=== PATIENT | male | born 1980 ===

== ENCOUNTER 2018-05-07 17:18 | Emergency (ER) | payer BC, MEDICAID ==
[2018-05-07 17:19] VITALS: BMI 25.7
[2018-05-07 17:35] VITALS: BP 140/92; PULSE 117; RESP 18; TEMP 98.6; O2SAT 96
[2018-05-07] MEDS ORDERED: Lidocaine 1%/Epinephrine 1:100000 30 ml vial INJ ONE (17:43)
[2018-05-07] MEDS ORDERED: Lidocaine Hydrochloride 5 ML INJ ONE (18:04)
[2018-05-07] MEDS ORDERED: Bacitracin 500 Units/gm Oint Foilpak UD TOP ONE (18:21)
--- NOTE | 2018-05-07 18:24 | C.PDOC ---
History Of Present Illness 37 year old male presents to the ER for evaluation of a laceration to the right forearm. He states a large piece of metal fell onto approx it 1 hour ago. He originally went to [facility] ED but states "the wait was too long", so he came here. Tetanus vaccination is up to date, received it last year. Patient denies any other injuries, sensory changes, weakness. Denies any other injury. Time Seen by Provider: 05/07/18 17:36 Chief Complaint (Nursing): Abnormal Skin Integrity History Per: Patient History/Exam Limitations: no limitations Onset/Duration Of Symptoms: Hrs Current Symptoms Are (Timing): Still Present Severity: Mild Past Medical History Reviewed: Historical Data, Nursing Documentation, Vital Signs Vital Signs: Last Vital Signs Temp 98.6 F 05/07/18 17:32 Pulse 117 H 05/07/18 17:32 Resp 18 05/07/18 17:32 BP 140/92 H 05/07/18 17:32 Pulse Ox 96 05/09/18 13:19 - Medical History PMH: Asthma, Back Problems (chronic neck pain) Family History: States: No Known Family Hx - Social History Hx Alcohol Use: Yes Hx Substance Use: Yes (heroine, marijuana, crack) - Immunization History Hx Tetanus Toxoid Vaccination: No Review Of Systems Constitutional: Negative for: Fever, Chills Musculoskeletal: Positive for: Arm Pain Skin: Positive for: Lesions (laceration to arm). Negative for: Rash, Bruising Neurological: Negative for: Weakness, Numbness Physical Exam - Physical Exam Appears: Well, Non-toxic, No Acute Distress Skin: Normal Color, Warm, Dry, No Rash Head: Atraumatic, Normacephalic Eye(s): bilateral: Normal Inspection Oral Mucosa: Moist Neck: Supple Cardiovascular: Rhythm Regular Respiratory: Normal Breath Sounds, No Rales, No Rhonchi, No Wheezing Extremity: Normal ROM (with intact ROM to all digits and right wrist), Capillary Refill (< 2 sec all digits ), No Deformity, No Swelling, Other (Right forearm with approx 5 cm laceration to the lateral aspect of mid forearm, with mild bleeding; No foreign bodies or debris) Pulses: Left Radial: Normal, Right Radial: Normal Neurological/Psych: Oriented x3, Normal Sensation Gait: Steady ED Course And Treatment O2 Sat by Pulse Oximetry: 96 (RA) Pulse Ox Interpretation: Normal - Other Rad X-Ray Right Forearm X-Ray: Viewed By Me, Read By Radiologist Interpretation: Accession No. : [id number]. Patient Name / ID : PRAVEEN RODRIGUEZ / [id number]. Exam Date : 05/07/2018 17:46:10 ( Approved ). Study Comment : Sex / Age : M / 37Y. Creator : Aguila Johnson MD. Dictator : Aguila Johnson MD. Cattery Operator : Coding Technician : Aguila Johnson MD. Approver2 : Report Date : 05/07/2018 18:21:05. My Comment : . PROCEDURE: Radiographs of the Right Forearm. HISTORY: right forearm laceration/trauma. COMPARISON: None available. TECHNIQUE: Frontal and lateral views obtained. FINDINGS: BONES: No fracture or destructive lesion. JOINT SPACES: Unremarkable. OTHER FINDINGS: Mid forearm soft tissue defect. IMPRESSION: Mid forearm soft tissue laceration. No evidence of osseous injury. Progress Note: Xrays of right forearm ordered and reviewed. Patient given PO tylenol. Laceration repair done by me, patient tolerated well. Bacitracin + gauze dressing applied to area by nurse. Patient given Rxs for Clindamycin and Naprosyn, and was instructed to return for suture removal in 7-10 days. He understands he should return sooner if he has any concerning symptoms, such as fever, redness, swelling, discharge etc. Reassessment Condition: Improved Laceration - Laceration Repair 5 Wound Length (In cm): 5 Description Of Wound: Linear Anesthesia: Lidocaine 1%, With Bicarb Wound Examination: Irrigated With Saline, No FB With Wound Exploration, No Tendon Injury With Wound Exploration Wound Closure: Suture (3 subcutaneous Vicryl 3.0. 9 dermal nylon 3.0) Suture Technique And Material Used: Interrupted, Nylon, Vicryl Wound Complexity: Intermediate Disposition Counseled Patient/Family Regarding: Studies Performed, Diagnosis, Need For Followup, Rx Given - Disposition Referrals: [facility] [Outside] Disposition: HOME/ ROUTINE Disposition Time: 18:40 Condition: STABLE Additional Instructions: SUTURE REMOVAL IN 7 DAYS USE MEDICATIONS DIRECTED RETURN TO ER IF SYMPTOMS WORSEN Prescriptions: Clindamycin [Cleocin] 300 mg PO TID #21 cap Naproxen 375 mg PO BID PRN #20 tablet PRN Reason: pain Instructions: Laceration Repair With Stitches (DC) Forms: [employer] (Amharic) Print Language: BENGALI - POA Present On Arrival: Falls Or Trauma - Clinical Impression Clinical Impression: Arm laceration - Scribe Statement The provider has reviewed the documentation as recorded by the Scribe (Annabelle Tolentino) Provider Attestation: All medical record entries made by the Scribe were at my direction and personally dictated by me. I have reviewed the chart and agree that the record accurately reflects my personal performance of the history, physical exam, medical decision making, and the department course for this patient. I have also personally directed, reviewed, and agree with the discharge instructions and disposition.
[2018-05-07] MEDS ORDERED: Bacitracin 500 Units/gm Oint Foilpak UD ONE (18:25)
== END 2018-05-07 18:43 | disposition home or self-care (01) ==
LOC: C.ER 17:18
DX: S51.811A Laceration without foreign body of right forearm, initial encounter (principal); W22.8XXA Striking against or struck by other objects, initial encounter

== ENCOUNTER 2018-05-13 22:41 | Emergency (ER) | payer BC, MEDICAID ==
[2018-05-13 22:41] VITALS: BMI 23.7
[2018-05-13 22:48] VITALS: BP 120/88; PULSE 96; TEMP 98.8; O2SAT 98
[2018-05-13] MEDS ORDERED: Bacitracin 500 Units/gm Oint Foilpak UD TOP ONE (23:01)
--- NOTE | 2018-05-13 23:03 | C.PDOC ---
History Of Present Illness Patient is here for removal of stitches from right arm after laceration repair one week ago. Denies any fever, redness, drainage, or pain. Time Seen by Provider: 05/13/18 22:49 Chief Complaint (Nursing): Suture/Staple Removal History Per: Patient History/Exam Limitations: no limitations Onset/Duration Of Symptoms: Days Ago Past Medical History Reviewed: Historical Data, Nursing Documentation, Vital Signs Vital Signs: Last Vital Signs Temp 98.8 F 05/13/18 22:46 Pulse 96 H 05/13/18 22:46 Resp 18 05/13/18 22:46 BP 120/88 05/13/18 22:46 Pulse Ox 98 05/13/18 23:03 - Medical History PMH: Asthma, Back Problems (chronic neck pain) Family History: States: Unknown Family Hx - Social History Hx Alcohol Use: Yes Hx Substance Use: Yes (heroine, marijuana, crack METH,) - Immunization History Hx Tetanus Toxoid Vaccination: No Review Of Systems Except As Marked, All Systems Reviewed And Found Negative. Skin: Positive for: Other (sutured wound right arm) Physical Exam - Physical Exam Appears: Non-toxic, No Acute Distress Skin: Warm, Dry, Other (sutures clean dry and intact to right dorsal arm, no erythema swelling or drainage) Head: Normacephalic Eye(s): bilateral: Normal Inspection Chest: Symmetrical Extremity: Bilateral: Normal ROM Neurological/Psych: Oriented x3, Normal Speech ED Course And Treatment O2 Sat by Pulse Oximetry: 98 Medical Decision Making Medical Decision Making: Sutures removed without difficulty. RN applied bacitracin and dressing. Disposition Counseled Patient/Family Regarding: Need For Followup - Disposition Referrals: Non [facility] Provider, [Primary Care Provider] - Disposition: HOME/ ROUTINE Disposition Time: 23:03 Condition: GOOD Instructions: Stitches Removal Forms: Work Excuse - POA Present On Arrival: None - Clinical Impression Clinical Impression: Removal of suture
[2018-05-13] MEDS ORDERED: Bacitracin 500 Units/gm Oint Foilpak UD ONE (23:05)
[2018-05-13 23:34] VITALS: RESP 20
== END 2018-05-13 23:33 | disposition home or self-care (01) ==
LOC: SUPCPDRO 22:41 → C.ER 22:41
DX: Z48.02 Encounter for removal of sutures (principal)

== ENCOUNTER 2018-07-19 22:32 | Inpatient (IN) | payer BC, MEDICAID ==
[2018-07-19 22:32] VITALS: BMI 23.7
[2018-07-19 23:41] LABS: BASO # 0.1 K/uL (0.0-0.2); BASO % 1.1 % (0.0-2.0); EOS # 0.2 K/uL (0.0-0.7); HEMOGLOBIN 15.8 g/dL (12.0-18.0); LYMPH # 3.2 K/uL (1.0-4.3); LYMPH % 32.2 % (20.0-40.0); MEAN CELL VOLUME 92.4 fL (80.0-94.0); MEAN CORPUSCULAR HEMOGLOBIN 31.9 pg (27.0-31.0); MEAN CORPUSCULAR HGB CONC 34.6 g/dL (33.0-37.0); MEAN PLATELET VOLUME 8.1 fL (7.2-11.7); MONO # 0.6 K/uL (0.0-0.8); MONO % 6.2 % (0.0-10.0); NEUT # 5.9 K/uL (1.8-7.0); NEUT % 58.5 % (50.0-75.0); RBC 4.94 Mil/uL (4.40-5.90); RED CELL DISTRIBUTION WIDTH 12.5 % (11.5-14.5); WHITE BLOOD COUNT 10.1 K/uL (4.8-10.8)
[2018-07-19 23:44] LABS: URINE BILIRUBIN NEGATIVE (NEGATIVE); URINE BLOOD NEGATIVE (NEGATIVE); URINE CLARITY Clear (Clear); URINE COLOR Yellow (YELLOW); URINE GLUCOSE (UA) NORMAL (Normal); URINE LEUKOCYTE ESTERASE NEG Leu/uL (Negative); URINE PROTEIN NEGATIVE (NEGATIVE); URINE UROBILINOGEN NORMAL mg/dL (0.2-1.0)
[2018-07-19 23:54] LABS: ALB/GLOB RATIO 1.4 (1.0-2.1); ALBUMIN 4.2 g/dL (3.5-5.0); ALT/SGPT 50 U/L (21-72); AST/SGOT 27 U/L (17-59); BLOOD UREA NITROGEN 19 mg/dL (9-20); CALCIUM 8.8 mg/dl (8.6-10.4); GFR NON-AFRICAN AMERICAN > 60
[2018-07-19 23:57] LABS: BARBITURATES, UR NEGATIVE (NEGATIVE); BENZODIAZEPINES, UR NEGATIVE (NEGATIVE); PHENCYCLIDINE, UR NEGATIVE (NEGATIVE)
--- NOTE | 2018-07-19 23:57 | C.PDOC ---
History Of Present Illness 57 y/o male presents to the ED requesting detox. The patient admits to using cocaine heroine. He reports last use was a few hours ago. The patient has no medical complaints at this time. Time Seen by Provider: 07/19/18 23:27 Chief Complaint (Nursing): Substance Abuse History Per: Patient History/Exam Limitations: no limitations Onset/Duration Of Symptoms: Hrs Modifying Factor(s): Cocaine, Other (Heroine) Recent travel outside of the [place]: No Past Medical History Reviewed: Historical Data, Nursing Documentation, Vital Signs Vital Signs: Last Vital Signs Temp 98.4 F 07/19/18 22:39 Pulse 80 07/19/18 22:39 Resp 14 07/19/18 22:39 BP 140/80 07/19/18 22:39 Pulse Ox 97 07/19/18 22:39 - Medical History PMH: Asthma, Back Problems (chronic neck pain) Denies: Diabetes, Hepatitis, HIV, HTN, Seizures, Sexually Transmitted Disease Other Surgeries: Right thumb surgery Family History: States: Unknown Family Hx - Social History Hx Alcohol Use: Yes Hx Substance Use: Yes (heroine, marijuana, crack METH,) - Immunization History Hx Tetanus Toxoid Vaccination: No Review Of Systems Except As Marked, All Systems Reviewed And Found Negative. Constitutional: Negative for: Fever, Chills, Sweats Psych: Negative for: Depression, Suicidal ideation Physical Exam - Physical Exam Appears: Well, Non-toxic, No Acute Distress Skin: Normal Color, Warm, Dry Head: Atraumatic, Normacephalic Eye(s): bilateral: PERRL, EOMI Ear(s): Bilateral: Normal Oral Mucosa: Moist Neck: Supple Chest: Symmetrical Cardiovascular: Rhythm Regular, No Murmur Respiratory: Normal Breath Sounds, No Rales, No Rhonchi, No Wheezing Gastrointestinal/Abdominal: Soft, No Tenderness, No Distention Extremity: Normal ROM Extremity: Bilateral: Normal Color And Temperature, Normal ROM Neurological/Psych: Other (conscious. no focal deficits) ED Course And Treatment - Laboratory Results Result Diagrams: 07/19/18 23:38 07/19/18 23:38 O2 Sat by Pulse Oximetry: 97 (RA) Pulse Ox Interpretation: Normal Medical Decision Making Medical Decision Making: Impression: 57 y/o male requesting detox from heroine and cocaine Plan: -Alcohol serum -CMP -Drug Screen -CBC -UA Disposition Discussed With Dr.: Jatin Manuel Doctor Will See Patient In The: Hospital Counseled Patient/Family Regarding: Diagnosis - Disposition Disposition: HOSPITALIZED Disposition Time: 00:14 Condition: STABLE Forms: [facility] (Hebrew) - POA Present On Arrival: None - Clinical Impression Clinical Impression: Opiate abuse, continuous, Cocaine abuse - PA / SHOTBLASTER / Resident Statement MD/DO has reviewed & agrees with the documentation as recorded. - Scribe Statement The provider has reviewed the documentation as recorded by the Scribe (Elvi Zelaya) Provider Attestation: All medical record entries made by the Scribe were at my direction and personally dictated by me. I have reviewed the chart and agree that the record accurately reflects my personal performance of the history, physical exam, medic al decision making, and the department course for this patient. I have also personally directed, reviewed, and agree with the discharge instructions and disposition.
[2018-07-20] LABS: OPIATES, UR POSITIVE (NEGATIVE)
--- NOTE | 2018-07-20 01:53 | PCM.BM ---
Treatment Plan Problems - Problems identified on initial assessmt ETOH Dependence Date Initiated: 07/20/18 Time Initiated: 01:52 Assessment reference: NA Status: Active Opiate Dependence Date Initiated: 07/20/18 Time Initiated: 01:53 Assessment reference: NA Status: Active Treatment assets and liabiliti Patient Assests: ADL independent Patient Liabilities: substance abuse - Milieu Protocol Maintain good personal hygiene: daily Encourage regular showers, daily Remind patient to perform daily oral care, daily Assist patient to perform ADL's Maintain personal safety: every shift Educate patient to report safety concerns to staff, every shift Monitor environment for contraband/sharps Medication safety: Monitor for expected outcome, potential side effects: every s hift, Assess barriers to learning: every shift, Assess readiness for medication education: every shift
[2018-07-20] MEDS ORDERED: Aluminum Hydroxide/Magnesium Hydroxide Susp (30 mL) PO PRN (10:25)
--- NOTE | 2018-07-20 14:22 | PCM.PSYCH ---
Initial Psychiatric Evaluation - Initial Psychiatric Evaluation Type of Admission: Voluntary Legal Status: Capacity Chief Complaint (in patient's own words): "I am withdrawing" History of Present Illness and Precipitating Events: The patient is seen, chart reviewed and case discussed. This is a 38-year-old male, single with 2 children aged 10 and 15, unemployed and lives with his father. The patient is using opiates since age 12 and lately he decreased it to 5 backs intranasally. He also uses cocaine intranasally same age and alcohol 1 pint a day. He Sean 1 time He has never been to detox or rehabilitation but he was on methadone maintenance in 2018 up to 30 mg but they discharged him from [facility] in [place]. He feels anxious and has wdw sxs Past psych history: He denies Family psych history: He denies Medical history: Asthma Current Medications: Active Medications Generic Name Dose Route Start Last Admin Trade Name Freq PRN Reason Stop Dose Admin Al Hydrox/Mg Hydrox/Simethicone 30 ml 07/20/18 10:25 Maalox 30 Ml PO TID PRN Indigestion / Heartburn Clonidine HCl 0.1 mg 07/20/18 02:39 Catapres PO Q6 PRN withdrawal symptoms Clonidine HCl 0.1 mg 07/20/18 10:25 Catapres PO Q8 PRN COWS Score More or Equal to 5 Hydroxyzine HCl 50 mg 07/20/18 10:28 07/20/18 13:36 Atarax PO 50 mg Q6 PRN Administration Anxiety Loperamide HCl 2 mg 07/20/18 10:25 Imodium PO Q8 PRN Diarrhea Methadone HCl 20 mg 07/20/18 11:00 07/20/18 10:45 Methadone PO 07/24/18 10:59 20 mg Q24H CHRISTIANO Administration Taper Ondansetron HCl 4 mg 07/20/18 10:25 Zofran Tab PO Q8 PRN Nausea/Vomiting Past Psychiatric History - Past Psychiatric History Previous Treatment History: None Pertinent Medical Hx (Current Medical&Sleep Prob, Allergies): Allergies Allergy/AdvReac Type Severity Reaction Status Date / Time No Known Allergies Allergy Verified 07/19/18 22:41 No Known Home Med 05/13/18 Review of Systems - Neurological Neurological: Tremor - Psychiatric Psychiatric: Abnormal Sleep Pattern, Anhedonia, Behavioral Changes, Change in Appetite, Difficulty Concentrating. absent: Hallucinations, Homicidal Ideation, Paranoia, Suicidal Ideation Mental Status Examination - Personal Presentation Personal Presentation: Looks stated age - Affect Affect: Constricted - Motor Activity Motor Activity: Other (restless) - Reliability in Providing Information Reliability in Providing Information: Fair - Speech Speech: Organized - Mood Mood: Depressed, Anxious - Formal Thought Process Formal Thought Process: No Impairment - Cognitive Functions Orientation: Person, Place, Situation, Time Sensorium: Alert Attention/Concentration: Easily distracted Estimate of Intelligence: Average Judgement: Intact, as evidence by: Insight regarding need for hospitalization Memory: Recent intact, as evidence by: Ability to recall events of the day, Remote intact, as evidenced by: Abilit to recall sig. life events - Risk Risk: Seizure, Withdrawal, Diminished functioning - Strength & Assets Inventory Strength & Assets Inventory: Cooperative - Limitations Limitations: Living alone DSM 5 DX - DSM 5 DSM 5 Diagnosis: Opioid withdrawal Opioid use d/o - severe - Recommended/Plan of Treatment Treatment Recommendations and Plan of Treatment: Taper with methadone Gabapentin for augmentation if needed As needed medications All risks, benefits and alternatives of the meds discussed, and the pt agreed and understood. Attend groups and activities Supportive therapy and psychoeducation HI for abstinence CBT for relapse prevention Encourage MAT Refer to rehab or IOP, and self-help groups Teach healthy lifestyle methods, i.e. diet, exercise, meditation Smoking cessation with HI Nicotine patch if needed 34 min Projected ELOS: 4-5 days Prognosis: good w treatment - Smoking Cessation Smoking Cessation Initiated: Yes
[2018-07-22 10:54] VITALS: BP 127/75; PULSE 68; RESP 20; TEMP 97.7; O2SAT 98
--- NOTE | 2018-07-22 19:21 | PCM.PYCHDC ---
Mental Status Examination - Mental Status Examination Orientation: Person, Place, Situation, Time Memory: Intact Mood: Neutral Affect: Other (Appropriate) Speech: Appropriate Attention: WNL Concentration: WNL Association: WNL Fund of Knowledge: WNL Formal Thought Process: No Impairment Description of patient's judgement and insight: Poor Psychotic Thoughts and Behaviors: None Suicidal Ideation: No Current Homicidal Ideation?: Yes Discharge Summary - Discharge Note Reason for Hospitalization: Opiate use disorder severe Cocaine use disorder Alcohol use disorder Laboratory Data: Reviewed Consultations:: List each consultation separately and include: 1. Reason for re quest. 2. Findings. 3. Follow-up Summary of Hospital Course include:: 1. Description of specific treatment plan utilized for patients during their course of treatmen. 2. Summarize the time- course for resolution of acute symptoms and/or regressed behaviors. 3. Describe issues identified and worked on during hospitalization. 4. Describe medication utilized. 5. Describe medical problems identified and treated. 6. Reassessment of suicide risk Summary of Hospital Course: The patient is seen, chart reviewed and case discussed. This is a 38-year-old male, single with 2 children aged 10 and 15, unemployed and lives with his father. The patient is using opiates since age 12 and lately he decreased it to 5 backs intranasally. He also uses cocaine intranasally same age and alcohol 1 pint a day. He Sean 1 time He has never been to detox or rehabilitation but he was on methadone maintenance in 2018 up to 30 mg but they discharged him from [facility] in [place]. He feels anxious and has wdw sxs Past psych history: He denies Family psych history: He denies Medical history: Asthma During his stay in the hospital, patient was treated with methadone taper for opiate withdrawal symptoms. He was also started on other when necessary medications. Patient started feeling little better with the treatment. Today yvan martin decided to leave the unit without completion of the detox. Education provided about detox and also to complete the treatment. Patient refused. Patient was also educated that in case of any adverse event including relapse, decompensation, overdose or even of the patient, patient will be responsible for his acts. Patient understood and agreed with the above but still refuses to stay and left the unit AGAINST MEDICAL ADVICE. At the time of evaluation and discharge, was awake alert oriented 3, had no delusions, no auditory or visual hallucinations, no suicidal ideations or homicidal ideations. Patient was discharged in a stable condition. - Final Diagnosis (DSM 5) Condition upon Discharge: STABLE Disposition: AGAINST MEDICAL ADVICE - Smoking Cessation Smoking Cessation Medication prescribed: No - Antipsychotic Medications Pt discharged on 2 or more routine antipsychotic medications: No
== END 2018-07-22 12:45 | disposition left against medical advice (07) | DRG 894 ==
LOC: C.ER 22:32 → C.7D 07-20 00:18
PROC: HZ2ZZZZ Detoxification Services for Substance Abuse Treatment (ICD-10-PCS; principal; 2018-07-20)
PROC: HZ81ZZZ Medication Management for Substance Abuse Treatment, Methadone Maintenance (ICD-10-PCS; 2018-07-20)
PROC: HZ80ZZZ Medication Management for Substance Abuse Treatment, Nicotine Replacement (ICD-10-PCS; 2018-07-20)
PROC: HZ46ZZZ Group Counseling for Substance Abuse Treatment, Psychoeducation (ICD-10-PCS; 2018-07-20)
PROC: HZ59ZZZ Individual Psychotherapy for Substance Abuse Treatment, Supportive (ICD-10-PCS; 2018-07-20)
DX: F11.23 Opioid dependence with withdrawal (principal); F10.10 Alcohol abuse, uncomplicated; F14.10 Cocaine abuse, uncomplicated; F17.210 Nicotine dependence, cigarettes, uncomplicated; J45.909 Unspecified asthma, uncomplicated

== ENCOUNTER 2018-10-04 14:51 | Emergency (ER) | payer BC, MEDICAID ==
[2018-10-04 14:51] VITALS: BMI 23.7
--- NOTE | 2018-10-04 15:35 | C.PDOC ---
History Of Present Illness 38 y/o male brought in by ambulance, accompanied by [employer], for public intoxication. Patient states in triage Im drunk. Reports he just wants to leave. Patient is uncooperative with provided further history. No evidence of trauma or injury. Time Seen by Provider: 10/04/18 14:54 Chief Complaint (Nursing): Psychiatric Evaluation History Per: Patient History/Exam Limitations: no limitations Onset/Duration Of Symptoms: Hrs Current Symptoms Are (Timing): Still Present Modifying Factor(s): Alcohol Additional History Per: EMS, Law Enforcement Past Medical History Reviewed: Historical Data, Nursing Documentation, Vital Signs Vital Signs: Last Vital Signs Temp 97.4 F L 10/04/18 14:55 Pulse 107 H 10/04/18 14:55 Resp BP 140/78 10/04/18 14:55 Pulse Ox 95 10/04/18 14:55 - Medical History PMH: Asthma, Back Problems (chronic neck pain) Denies: Diabetes, Hepatitis, HIV, HTN, Chronic Kidney Disease, Seizures, Sexually Transmitted Disease - [facility] Procedures DETOXIFICATION SERVICES FOR SUBSTANCE ABUSE TREATMENT (07/20/18) GROUP SNAP SHEARER FOR SUBSTANCE ABUSE TREATMENT, PSYCHOEDUCATION (07/20/18) INDIV PSYCHOTHERAPY FOR SUBSTANCE ABUSE TREATMENT, SUPPORT (07/20/18) MEDS MGMT FOR SUBSTANCE ABUSE TREATMENT, METHADONE MAINT (07/20/18) MEDS MGMT FOR SUBSTANCE ABUSE TREATMENT, NICOTINE REPLACE (07/20/18) Family History: States: Unknown Family Hx - Social History Hx Alcohol Use: Yes Hx Substance Use: Yes - Immunization History Hx Tetanus Toxoid Vaccination: No Hx Influenza Vaccination: No Hx Pneumococcal Vaccination: No Review Of Systems Except As Marked, All Systems Reviewed And Found Negative. Constitutional: Negative for: Fever Cardiovascular: Negative for: Chest Pain Respiratory: Negative for: Shortness of Breath Gastrointestinal: Negative for: Vomiting Neurological: Negative for: Weakness, Numbness Psych: Positive for: Other (ETOH intoxication). Negative for: Suicidal ideation (or plan) Physical Exam - Physical Exam Additional Physical Exam Comments: Constitutional: No acute distress. Patient uncooperative with exam. Head: Normocephalic. Atraumatic. Eyes: PERRL. Skin: No rash. Neurologic: Alert, appears intoxicated. ED Course And Treatment O2 Sat by Pulse Oximetry: 95 (RA) Pulse Ox Interpretation: Normal Medical Decision Making Medical Decision Making: Patient uncooperative with history and exam, stating he just wants to leave. Restraints placed. Patient later awake, alert, steady gait, reasonable interactions with staff. Discharged. Disposition - Disposition Disposition: HOME/ ROUTINE Disposition Time: 16:54 Condition: STABLE Instructions: Alcohol Abuse and Alcoholism (DC) Forms: [employer] (Belarusian) - Clinical Impression Clinical Impression: Alcohol intoxication - Scribe Statement The provider has reviewed the documentation as recorded by the Hiltonibmattie Tolentino Provider Attestation: All medical record entries made by the Marla were at my direction and personally dictated by me. I have reviewed the chart and agree that the record accurately reflects my personal performance of the history, physical exam, medical decision making, and the department course for this patient. I have also personally directed, reviewed, and agree with the discharge instructions and disposition.
[2018-10-04 16:34] VITALS: RESP 16
[2018-10-04 18:22] VITALS: BP 105/61; PULSE 79; TEMP 98.3
[2018-10-04 22:57] VITALS: O2SAT 95
== END 2018-10-04 18:21 | disposition home or self-care (01) ==
LOC: C.ER 14:51
DX: F10.129 Alcohol abuse with intoxication, unspecified (principal); Y90.8 Blood alcohol level of 240 mg/100 ml or more
CPT/HCPCS: 96372; 99283; G0480; J1630; J2060

== ENCOUNTER 2018-11-29 11:37 | Emergency (ER) | payer BC, MEDICAID ==
[2018-11-29 11:37] VITALS: BMI 23.7
[2018-11-29 11:50] VITALS: BP 136/83; PULSE 95; RESP 20; TEMP 98.6; O2SAT 95
--- NOTE | 2018-11-29 13:25 | C.PDOC ---
History Of Present Illness 38 year old male brought in by EMS for heroin overdose. Patient uses heroin intranasally. Patient had a prior evaluation that was the same. Patient was given narcan in the field. Patient regained baseline mental status. Patient denies nausea, vomiting, or dizziness. Time Seen by Provider: 11/29/18 12:57 Chief Complaint (Nursing): Substance Abuse History Per: Patient, EMS History/Exam Limitations: no limitations Onset/Duration Of Symptoms: Hrs Current Symptoms Are (Timing): Still Present Modifying Factor(s): Other (heroin) Additional History Per: Patient, EMS Past Medical History Reviewed: Historical Data, Nursing Documentation, Vital Signs Vital Signs: Last Vital Signs Temp 98.6 F 11/29/18 11:47 Pulse 95 H 11/29/18 11:47 Resp 20 11/29/18 11:47 BP 136/83 11/29/18 11:47 Pulse Ox 95 11/29/18 11:47 - Medical History PMH: Asthma, Back Problems (chronic neck pain) Denies: Diabetes, Hepatitis, HIV, HTN, Chronic Kidney Disease, Seizures, Sexu ally Transmitted Disease Surgical History: No Surg Hx - [facility] Procedures DETOXIFICATION SERVICES FOR SUBSTANCE ABUSE TREATMENT (07/20/18) GROUP QUALITY ASSURANCE CALIBRATOR FOR SUBSTANCE ABUSE TREATMENT, PSYCHOEDUCATION (07/20/18) INDIV PSYCHOTHERAPY FOR SUBSTANCE ABUSE TREATMENT, SUPPORT (07/20/18) MEDS MGMT FOR SUBSTANCE ABUSE TREATMENT, METHADONE MAINT (07/20/18) MEDS MGMT FOR SUBSTANCE ABUSE TREATMENT, NICOTINE REPLACE (07/20/18) Family History: States: Unknown Family Hx - Social History Hx Alcohol Use: Yes Hx Substance Use: Yes - Immunization History Hx Tetanus Toxoid Vaccination: No Hx Influenza Vaccination: No Hx Pneumococcal Vaccination: No Review Of Systems Constitutional: Negative for: Fever, Chills, Weakness Cardiovascular: Negative for: Light Headedness Gastrointestinal: Negative for: Nausea, Vomiting Musculoskeletal: Negative for: Back Pain Skin: Negative for: Rash Neurological: Negative for: Weakness, Numbness, Headache, Dizziness Physical Exam - Physical Exam Appears: Well, Non-toxic, No Acute Distress Skin: Normal Color, Warm, Dry Head: Atraumatic, Normacephalic Eye(s): bilateral: Other (equal, round, pinpoint pupils) Neck: Normal ROM, Supple Chest: Symmetrical, No Deformity Neurological/Psych: Other (awake, alert, argumentative) ED Course And Treatment O2 Sat by Pulse Oximetry: 95 (RA) Progress Note: Upon reassessment, patient is resting comfortably, in no distress, and is stable for D/C. Patient is advised to return to the ED if symptoms persist or worsen. Patient is advised to follow up with detox program and counseling. Medical Decision Making Medical Decision Making: intranasal heroine abuse many ED presentations for same working Sanitation, garbage collection irritable, wants immediate d/c, ambulatory in ED safe for d/c Narcan Rx'd for PRN use Disposition Doctor Will See Patient In The: Office Counseled Patient/Family Regarding: Studies Performed, Diagnosis - Disposition Referrals: [facility] [Outside] [employer] [facility] [Outside] [facility] [Outside] [facility] [Outside] Disposition: HOME/ ROUTINE Disposition Time: 13:24 Condition: GOOD Additional Instructions: keep Narcan intranasal spray on your person @ all times, and advise people around you that they may spray it up your nose to save your life in case of accidental narcotics overdose outpatient follow-up for Detox programs or Counseling at your convenience. Prescriptions: Naloxone HCl [Narcan] 4 mg NS ONCE PRN #1 spray PRN Reason: opiate overdose Instructions: Opioid Use Disorder Forms: [employer] ([place]) - Clinical Impression Clinical Impression: Narcotic abuse - Scribe Statement The provider has reviewed the documentation as recorded by the Scribe (Mis Sánchez) All medical record entries made by the Scribe were at my direction and personally dictated by me. I have reviewed the chart and agree that the record accurately reflects my personal performance of the history, physical exam, medical decision making, and the department course for this patient. I have also personally directed, reviewed, and agree with the discharge instructions and disposition.
== END 2018-11-29 13:52 | disposition home or self-care (01) ==
LOC: C.ER 11:37
DX: F11.10 Opioid abuse, uncomplicated (principal)